=== PATIENT | male | born 1975 | race Two or more races ===

== ENCOUNTER 2017-02-05 14:11 | Emergency (ER) | payer OTHER ==
[2017-02-05] MEDS ORDERED: Aspirin Low Dose CHEW TAB* 81 MG PO ONE (16:15)
[2017-02-05 17:38] LABS: Hematocrit 44 % (42-52); Hemoglobin 14.7 g/dl (14.0-18.0); Mean Corpuscular HGB Conc 33 g/dl (31-36); Mean Corpuscular Hemoglobin 30 pg (27-31); Mean Corpuscular Volume 89 fL (80-94); Mean Platelet Volume 7 um3 (7.4-10.4); Red Blood Count 4.96 10^6/ul (4.0-5.4); Red Cell Distribution Width 13 % (10.5-15); White Blood Count 8.2 10^3/ul (3.5-10.8)
[2017-02-05 17:55] LABS: Albumin 4.4 g/dL (3.2-5.2); BUN/Creatinine Ratio 11.4 (8-20); Calcium 10.1 mg/dL (8.6-10.3); EGFR African American 137.7 (>60); Globulin 3.6 g/dL (2-4); Potassium 4.2 mmol/L (3.5-5.0); Total Bilirubin 0.6 mg/dL (0.2-1.0)
[2017-02-05 18:26] LABS: TSH (Thyroid Stimulating Horm) 1.95 mcIU/mL (0.34-5.60)
[2017-02-05 18:30] VITALS: BP 138/82
[2017-02-05 18:33] LABS: Free T4 0.92 ng/dL (0.61-1.12)
--- NOTE | 2017-02-05 22:03 | ED ---
Nicko Bell Alok, scribed for Jean Marie Delgado MD on 02/05/17 at 1744 . Dizziness - HPI Summary HPI Summary: 41 y/o male presents to the ED with dizziness spells on and off for the past two weeks. Pt states that these spells worsened today, prompting his visit to the ED. Pt adds that these dizziness spells usually occur at work where he works an average of 15 hours a day and are stress induced. Pt also notes tinnitus in both ears. Pt states he felt a sharp RUQ abd pain 3 days ago which subsided on its own. Pt denies diaphoresis, SOB, or CP.PMHx includes HTN for which he takes Atenolol 50 mg BID. PT also takes Imitrex for migraine. Pt denies decongestants. Pt denies PSHx. Pt denies SI and denies tobacco/drugs/ ETOH. FMHx includes renal disease. PCP Dr. Mckeon. - History Of Current Complaint Chief Complaint: EDDizziness Stated Complaint: DIZZY Time Seen by Provider: 02/05/17 16:15 Hx Obtained From: Patient Onset/Duration: Resolved Timing: Intermittent Episode Lasting Severity Initially: Moderate Character: Dizzy Aggravating Factor(s): Other - Stress Associated Signs And Symptoms: Positive: Tinnitus. Negative: Diaphoresis, Chest Pain, SOB - Allergies/Home Medications Allergies/Adverse Reactions: Allergies Allergy/AdvReac Type Severity Reaction Status Date / Time No Known Allergies Allergy Verified 09/06/16 21:12 PMH/Surg Hx/FS Hx/Imm Hx Cardiovascular History: Reports: Hx Hypertension Neurological History: Reports: Hx Migraine Infectious Disease History: No Infectious Disease History: Denies: Traveled Outside the [place] in Last 30 Days - Family History Known Family History: Positive: Renal Disease - Social History Occupation: Employed Full-time Lives: With Family Alcohol Use: None Substance Use Type: Reports: None Smoking Status (MU): Never Smoked Tobacco Review of Systems Negative: Fever, Chills Positive: Other - Tinnitus. Negative: Erythema Negative: Sore Throat Negative: Chest Pain Negative: Shortness Of Breath, Cough Positive: Abdominal Pain. Negative: Vomiting, Nausea Negative: dysuria, hematuria Negative: Myalgia, Edema Negative: Rash Neurological: Other - Dizziness All Other Systems Reviewed And Are Negative: Yes Physical Exam - Summary Physical Exam Summary: Constitutional: Well-developed, Well-nourished, Alert. (-) Distressed Skin: Warm, Dry HENT: Eyes: Conjunctiva normal Neck: Musculoskeletal ROM normal neck. (-) JVD, (-) Stridor, (-) Tracheal deviation Cardio: Rhythm regular, rate normal, Heart sounds normal; Intact distal pulses; The pedal pulses are 2+ and symmetric. Radial pulses are 2+ and symmetric. (-) Murmur Pulmonary/Chest wall: Effort normal. (-) Respiratory distress, (-) Wheezes, (-) Rales Abd: Soft. (-) Tenderness, (-) Distension, (-) Guarding, (-) Rebound Musculoskeletal: (-) Edema Lymph: (-) Cervical adenopathy Neuro: Alert, Oriented x3, Strength normal, Cranial nerves II-XII are grossly intact. (-) Dysmetria, (-) Nystagmus, (-) Ataxia by finger to nose testing, (-) Sensory deficit. Psych: Mood and affect Normal Triage Information Reviewed: Yes Vital Signs On Initial Exam: Initial Vitals Temp Pulse Resp BP Pulse Ox 97.3 F 54 18 148/88 100 02/05/17 14:13 02/05/17 14:13 02/05/17 14:13 02/05/17 14:13 02/05/17 14:13 Vital Signs Reviewed: Yes - Rena Coma Scale Coma Scale Total: 15 Diagnostics - Vital Signs Vital Signs Temp Pulse Resp BP Pulse Ox 02/05/17 15:24 97.5 F 55 16 144/85 100 02/05/17 14:13 97.3 F 54 18 148/88 100 - Laboratory Result Diagrams: 02/05/17 17:26 02/05/17 17:26 Lab Statement: Any lab studies that have been ordered have been reviewed, and results considered in the medical decision making process. Dizzy Course/Dx - Diagnoses Provider Diagnoses: Stress response, HTN (hypertension) Discharge - Discharge Plan Condition: Stable Disposition: HOME Prescriptions: Metoprolol Tartrate TAB* [Lopressor TAB*] 25 mg PO DAILY #90 tab Patient Education Materials: Chronic Hypertension (ED) Referrals: Link Mckeon MD [Primary Care Provider] - The documentation as recorded by the Nicko raygoza Alok accurately reflects the service I personally performed and the decisions made by me, Jean Marie Delgado MD.
== END 2017-02-05 18:29 | disposition home or self-care (01) ==
LOC: ED 14:11
DX: I10 Essential (primary) hypertension (principal); R42 Dizziness and giddiness; H93.19 Tinnitus, unspecified ear; F43.9 Reaction to severe stress, unspecified
CPT/HCPCS: 36415; 80053; 83605; 84439; 84443; 84484; 85025; 99282

== ENCOUNTER 2018-04-27 12:55 | Emergency (ER) | payer SELFPAY ==
--- NOTE | 2018-04-27 13:37 | RAD ---
INDICATION: Dizziness COMPARISON: September 03, 2015 TECHNIQUE: PA and lateral dual-energy views were obtained. FINDINGS: Bones/Soft Tissues: There are no acute bony findings. Cardiomediastinal: The cardiomediastinal silhouette is normal. Lungs: There are no infiltrates. Pleura: There are no pleural effusions. Other: None IMPRESSION: NO ACTIVE DISEASE.
--- NOTE | 2018-04-27 13:41 | ED ---
Neurological HPI - HPI Summary HPI Summary: This is jonathane Bebetoloc Ortiz documenting for attending Dr. Hero Kulkarni MD. A 42 y/o male presents to ED c/o dizziness and lightheadedness. Currently, the patient is not feeling dizzy, but is still lightheaded. According to the patient he was helping some coworkers cook and move things when he experienced dizziness and light-headedness. He describes the dizziness as room-spinning. Patient denies any nausea, vomiting, CP, SOB, or palpitations, however, has neck pain when he is stressed out. He noted that he has been under a lot of stress lately. 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 He said that if he is under a lot of stress he normally goes to [place] for a week or so. He has already booked tickets. He noted that he has been to hospital for same symptoms in which his MD prescribed Metoprolol medication, but never did any scans. He took Excedrin and two strong coffees around 0900. PMHx of migraines and HTN. No major surgeries. - History of Current Complaint Chief Complaint: EDDizziness Stated Complaint: DIZZINESS Time Seen by Provider: 04/27/18 13:18 Hx Obtained From: Patient Onset/Duration: Sudden Onset, Started hours ago, Still Present - Lightheadedness , no dizziness Timing: Constant Pain Intensity: 0 Pain Scale Used: 0-10 Numeric Character: Room Spinning, Lightheaded, Dizzy Aggravating: Nothing Alleviating: Nothing Associated Signs and Symptoms: Positive: Lightheadness, Neck Pain/Stiffness - Neck pain with stress. Negative: Nausea/Vomiting, Fever, Chest Pain, Shortness of Breath, Palpitations - Allergy/Home Medications Allergies/Adverse Reactions: Allergies Allergy/AdvReac Type Severity Reaction Status Date / Time No Known Allergies Allergy Verified 04/27/18 13:04 Home Medications: Home Medications Metoprolol Tartrate TAB* [Lopressor TAB*] 50 mg PO DAILY 04/27/18 [History Confirmed 04/27/18] PMH/Surg Hx/FS Hx/Imm Hx Endocrine/Hematology History: Denies: Hx Diabetes Cardiovascular History: Reports: Hx Hypertension Neurological History: Reports: Hx Migraine Infectious Disease History: No Infectious Disease History: Denies: Traveled Outside the [place] in Last 30 Days - Family History Known Family History: Positive: Renal Disease, Other - Lung cancer (resolved) and leukemia. - Social History Alcohol Use: None Substance Use Type: Reports: Excessive Caffeine Substance Use Comment - Amount & Last Used: excedrin AND coffee Smoking Status (MU): Never Smoked Tobacco Review of Systems Negative: Fever Negative: Palpitations, Chest Pain Negative: Shortness Of Breath Negative: Vomiting, Nausea Positive: Other - POSITIVE: Neck pain with stress. Neurological: Other - POSITIVE: Dizziness, lightheadedness All Other Systems Reviewed And Are Negative: Yes Physical Exam - Summary Physical Exam Summary: VITAL SIGNS: Reviewed. GENERAL: Patient is a well-developed and nourished male who is lying comfortable in the stretcher.Patient is not in any acute respiratory distress. HEAD AND FACE: No signs of trauma. No ecchymosis, hematomas or skull depressions. No sinus tenderness. EYES: PERRLA, EOMI x 2, No injected conjunctiva, no nystagmus. No photophobia. EARS: Hearing grossly intact. Ear canals and tympanic membranes are within normal limits. MOUTH: Oropharynx within normal limits. NECK: Supple, trachea is midline, no adenopathy, no JVD, no carotid bruit, no c- spine tenderness, neck with full ROM. No meningeal signs, no Kernig's or brudzinskis signs. CHEST: Symmetric, no tenderness at palpation LUNGS: Clear to auscultation bilaterally. No wheezing or crackles. CVS: Regular rate and rhythm, S1 and S2 present, no murmurs or gallops appreciated. ABDOMEN: Soft, non-tender. No signs of distention. No rebound no guarding, and no masses palpated. Bowel sounds are normal. EXTREMITIES: FROM in all major joints, no edema, no cyanosis or clubbing. NEURO: Alert and oriented x 3. No acute neurological deficits. Speech is normal and follows commands. SKIN: Dry and warm GCS: 15 Vital Signs On Initial Exam: Initial Vitals Temp Pulse Resp BP Pulse Ox 97.6 F 76 16 163/104 98 04/27/18 13:02 04/27/18 13:02 04/27/18 13:02 04/27/18 13:02 04/27/18 13:02 Diagnostics - Vital Signs Vital Signs Temp Pulse Resp BP Pulse Ox 04/27/18 13:20 83 174/113 04/27/18 13:02 97.6 F 76 16 163/104 98 - Laboratory Result Diagrams: 04/27/18 13:55 04/27/18 13:55 Lab Statement: Any lab studies that have been ordered have been reviewed, and results considered in the medical decision making process. - Radiology CXR Radiology Interpretation Completed By: Radiologist - No active disease. ED physician reviewed this radiology report. - CT BRAIN CT CT Interpretation Completed By: Radiologist - Negative examination. ED physician reviewed this radiology report. - EKG 1344 Cardiac Rate: NL - 82 BPM. EKG Rhythm: Sinus Rhythm EKG Interpretation: No ST elevation. Normal axis. Re-Evaluation - Re-Evaluation First Eval Re-Evaluation Time: 16:16 Comment: Tachycardic, dialeted pupils, diaphoretic and not ataxic. Course/Dx - Course Assessment/Plan: This patient is a 42-year-old male who presents to the emergency room with a chief complaint of having dizziness. The patient reports that the room is spinning. He reports that this morning he developed a migraine headache for which he took some Excedrin and his symptoms improved. Now the patient is having the dizziness. He denies any nausea or vomiting he denies any chest pain shortness of breath palpitations. Blood work without any significant abnormality. Urinalysis is negative for UTI. Urine toxicology is negative. Head CT impression: Negative examination. EKG shows sinus rhythm at 82 bpm there is no ST elevations, is a T-wave inversion in 3. In the ED course the patient was given meclizine and his symptoms significantly improved. I believe that his symptoms are secondary to her vertigo. Before discharge I did a neurological exam again and is normal. The patient has no acute neurological focal deficits. Therefore the patient will be discharged home with follow-up with primary care physician. Patient was instructed to return to the patient if he develops any other symptoms. The patient understands and agrees. He will be given a prescription for meclizine. - Differential Dx Differential Diagnoses Neuro: Positive: Benign Paroxysmal Positional Vertigo, Cephalgia, Cerebrovascular Accident, Meniere's, Migraine, Transient Ischemic Attack - Diagnoses Provider Diagnoses: Vertigo Discharge - Sign-Out/Discharge Documenting (check all that apply): Patient Departure - DISCHARGE - Discharge Plan Condition: Stable Disposition: HOME Prescriptions: Meclizine TAB* [Antivert 12.5 TAB*] 25 mg PO TID PRN #30 tab PRN Reason: Vertigo Patient Education Materials: Vertigo (ED) Referrals: Link Mckeon MD [Primary Care Provider] - 1 Week Additional Instructions: FOLLOW UP WITH YOUR PRIMARY CARE PROVIDER WITHIN ONE WEEK FOR HIGH BLOOD PRESSURE NOTED TODAY. RETURN TO THE ED FOR ANY WORSENING OR NEW SYMPTOMS. - Billing Disposition and Condition Condition: STABLE Disposition: Home
--- NOTE | 2018-04-27 13:41 | RAD ---
INDICATION: Dizziness COMPARISON: None TECHNIQUE: Noncontrast axial source images were acquired from the skull base to the vertex. FINDINGS: Ventricles/sulci: The ventricles and cisterns are normal in size and configuration for age. Brain parenchyma: There is no focal parenchymal finding, evidence of intracranial mass, or intracranial mass effect. Intracranial hemorrhage:None. Extra-axial spaces: There are no abnormal extra axial fluid collections or evidence of extra-axial mass. Calvarium: There is no calvarial fracture or other calvarial abnormality. Scalp: There is no evidence of scalp or extracalvarial soft tissue abnormality. Paranasal sinuses/mastoid: The paranasal sinuses and mastoid air cells are clear. Other: None. IMPRESSION: NEGATIVE EXAMINATION
[2018-04-27] MEDS ORDERED: Meclizine TAB* 12.5 MG PO ONE (13:42)
[2018-04-27 14:09] LABS: ABS Basophils 0 10^3/ul (0-0.2); ABS Eosinophils 0.1 10^3/ul (0-0.6); ABS Lymphocytes 2.9 10^3/ul (1.0-4.8); ABS Monocytes 0.4 10^3/ul (0-0.8); ABS Neutrophils 4.2 10^3/ul (1.5-7.7); ABS Nucleated RBC 0 10^3/ul; Eosinophil % 1.4 % (0-6); Hematocrit 45 % (42-52); Hemoglobin 15.6 g/dl (14.0-18.0); Lymphocyte % 37.9 % (25-47); Mean Corpuscular HGB Conc 35 g/dl (31-36); Mean Corpuscular Hemoglobin 31 pg (27-31); Mean Corpuscular Volume 88 fL (80-94); Mean Platelet Volume 6.5 um3 (7.4-10.4); Nucleated Red Blood Cells % 0.1; Platelet Count 403 10^3/ul (150-450); Red Cell Distribution Width 13 % (10.5-15); White Blood Count 7.7 10^3/ul (3.5-10.8)
[2018-04-27 14:10] LABS: Urine Appearance Clear; Urine Blood Negative (Negative); Urine Color Straw; Urine Ketones Negative (Negative); Urine Protein Negative (Negative); Urine Specific Gravity 1.006 (1.010-1.030); Urine Urobilinogen Negative (Negative)
[2018-04-27 14:28] LABS: EGFR Non-African American 114.9 (>60)
[2018-04-27 16:50] VITALS: BP 151/112
== END 2018-04-27 16:49 | disposition home or self-care (01) ==
LOC: ED 12:55
DX: R42 Dizziness and giddiness (principal); M54.2 Cervicalgia; I10 Essential (primary) hypertension
CPT/HCPCS: 36415; 70450; 71046; 80053; 80307; 80320; 81003; 83605; 83735; 83880; 84443; 84484; 85025; 86140; 93005; 99283; A9270-GY; G0480